=== PATIENT | male | born 1940 | race Caucasian/White ===

== ENCOUNTER 2023-10-16 22:28 | Emergency (ER) | payer BC ==
[~2023-10-16] VITALS: Wt 90.7 kg
[2023-10-18] MEDS ORDERED: EPINEPHrine Hydrochloride 1 MG/10 ML SYR IV ONE (15:21)
== END 2023-10-16 22:39 ==
LOC: ED 22:28
DX: I46.9 Cardiac arrest, cause unspecified (principal); K21.9 Gastro-esophageal reflux disease without esophagitis; Z91.040 Latex allergy status; Z98.890 Other specified postprocedural states